=== PATIENT | female | born 1980 | race Caucasian/White ===

== ENCOUNTER 2019-01-19 09:52 | Emergency (ER) | payer OTHER | END 2019-01-19 10:23 | disposition other institution (70) | LOC: ED 09:52 | DX: Z02.89 Encounter for other administrative examinations (principal) ==

== ENCOUNTER 2019-01-19 09:52 | Emergency (ER) | payer OTHER ==
[~2019-01-19] VITALS: Ht 162.6 cm; Wt 61.7 kg
[2019-01-19 09:52] VITALS: BP 139/80; Ht 162.6 cm; Wt 61.7 kg
== END 2019-01-19 10:23 | disposition other institution (70) ==
LOC: ED 09:52
DX: Z13.89 Encounter for screening for other disorder (principal)